=== PATIENT | female | born 1995 | race Caucasian/White ===

== ENCOUNTER 2016-11-14 07:13 | Day surgery (SDC) | payer BC ==
--- NOTE | ~2016-11-14 | EGD ---
EGD REPORT [facility] [address] [place] [id number] NAME: BRENNEN JASON : [birth year] STATUS : REG [facility]#: [id number] AGE: 21 ADM/REG DATE : 11/14/16 MR#: [id number] REPORT SERV DATE: 11/14/16 DICTATED BY: KEVIN AYALA DATE: 11/14/16 REPORT STATUS : Draft TRANSCRIBED BY: [facility] DATE: 11/14/16 Endoscopy Center Patient Name: Brennen Jason Date of : 1995 Attending MD: KEVIN AYALA, Procedure Date No Time: 11/14/2016 Procedure: Upper GI endoscopy Indications: Heartburn Referring MD: KYE TEMPLE Medicines: Monitored Anesthesia Care Complications: No immediate complications. Estimated blood loss: None. Procedure: Pre-Anesthesia Assessment: - ASA Grade Assessment: III - A patient with severe systemic disease. After obtaining informed consent, the endoscope was passed under direct vision. Throughout the procedure, the patient's blood pressure, pulse, and oxygen saturations were monitored continuously. The GIF [id number] was introduced through the mouth, and advanced to the second part of duodenum. The upper GI endoscopy was accomplished without difficulty. The patient tolerated the procedure well. Findings: The esophagus and gastroesophageal junction were examined with white light. There were esophageal mucosal changes suspicious for short-segment Brito's esophagus, extending from the upper extent of the gastric folds which were at 34 cm from the incisors. Multiple tongues of salmon-colored mucosa were present from 34 to 35 cm and islands of salmon-colored mucosa were present at 34 cm. The maximum longitudinal extent of these esophageal mucosal changes was 1 cm in length. Biopsies were taken with a cold forceps for histology. Verification of patient identification for the specimen was done. Estimated blood loss was minimal. A 3 cm hiatus hernia was present. The stomach was normal. The cardia and gastric fundus were normal on retroflexion. The examined duodenum was normal. 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 Biopsied. - Hiatus hernia. - Normal stomach. - Normal examined duodenum. EGD REPORT [address] [id number] NAME: BRENNEN JASON : [birth year] STATUS : REG [facility] [place] PAT#: [id number] AGE: 21 ADM/REG DATE : 11/14/16 MR#: [id number] REPORT SERV DATE: 11/14/16 DICTATED BY: KEVIN AYALA DATE: 11/14/16 REPORT STATUS : Draft TRANSCRIBED BY: B[place] DATE: 11/14/16 Recommendation: - Patient has a contact number available for emergencies. The signs and symptoms of potential delayed complications were discussed with the patient. Return to normal activities tomorrow. Written discharge instructions were provided to the patient. - Return to previous diet. - Continue present medications. May need to consider anti reflux surgery - Await pathology results. - Repeat the upper endoscopy for surveillance based on pathology results. - Return to GI clinic in 4 weeks. Procedure Code(s): --- Professional --- 01611, Esophagogastroduodenoscopy, flexible, transoral; with biopsy, single or multiple Diagnosis Code(s): --- Professional --- K22.9, Disease of esophagus, unspecified K44.9, Diaphragmatic hernia without obstruction or gangrene R12, Heartburn CPT copyright 2013 [employer]. All rights reserved. The codes documented in this report are preliminary and upon reduction plant supervisor review may be revised to meet current compliance requirements. KEVIN AYALA, 11/14/2016 9:18 AM Number of Addenda: 0 Note Initiated On: 11/14/2016 8:58 AM Scope Withdrawal Time 0 hours 0 minutes 0 seconds [id number] [place] [id number]
[~2016-11-14 07:13] MED LIST: CAL12OSR PO; EXCEDRIN TENSI1 EACH PO; FOCALIN XR20 MG PO; IMITREX25 PO; INTEGRA PLUS C1 EACH PO; ISOPTIN SR180 MG PO; LAMICTAL25 PO; LEXAPRO20 PO; LOESTRIN PO; MAXALT10 MG PO; PAMPRIN PO; PRILOSEC40 MG PO; PROZAC40 MG PO; STRATTERA80 MG PO; TRILEP150 PO; ZOL100 PO
== END 2016-11-14 23:59 | disposition home or self-care (01) ==
LOC: DMU 07:13
PROVIDERS: Internal Medicine Gastroenterology
PROC: 0DB58ZX Excision of Esophagus, Via Natural or Artificial Opening Endoscopic, Diagnostic (ICD-10-PCS; 2016-11-14)
PROC: 0DB48ZX Excision of Esophagogastric Junction, Via Natural or Artificial Opening Endoscopic, Diagnostic (ICD-10-PCS; principal; 2016-11-14 08:30)
DX: K20.9 Esophagitis, unspecified (principal); K44.9 Diaphragmatic hernia without obstruction or gangrene; K22.9 Disease of esophagus, unspecified; G47.33 Obstructive sleep apnea (adult) (pediatric); M19.90 Unspecified osteoarthritis, unspecified site; F98.8 Other specified behavioral and emotional disorders with onset usually occurring in childhood and adolescence; F41.9 Anxiety disorder, unspecified; G43.909 Migraine, unspecified, not intractable, without status migrainosus; Z91.048 Other nonmedicinal substance allergy status; Z88.8 Allergy status to other drugs, medicaments and biological substances; Z79.899 Other long term (current) drug therapy
CPT/HCPCS: 84703; 88305; 88312; J2250